=== PATIENT | male | born 1945 | race Caucasian/White ===

== ENCOUNTER 2020-04-09 18:08 | Inpatient (IN) | payer MEDICARE, OTHER ==
[~2020-04-09] VITALS: Ht 175.3 cm; Wt 83.6 kg
[2020-04-09] MEDS ORDERED: COZAAR50 MG (19:08)
[2020-04-09] MEDS ORDERED: DEXILANT60 MG PO (19:09)
[2020-04-09] MEDS ORDERED: GLUCOPHAGE500 MG PO (19:09)
[2020-04-09] MEDS ORDERED: LOVASTATIN40 MG PO (19:10)
[2020-04-09] MEDS ORDERED: CARDURA2 MG PO (19:10)
[2020-04-09] MEDS ORDERED: ZETIA10 MG (19:10)
[2020-04-09 19:16] VITALS: BP 180/85; BMI 27.2
[2020-04-09 19:23] LABS: BASOPHILS 0.1 % (0-2); EOSINOPHILS 0.1 % (0-7); HEMATOCRIT 40.3 % (42.0-54.0); HEMOGLOBIN 13.5 g/dL (13.5-17.5); IMMATURE GRANULOCYTES 0.2 % (0-5); LYMPHOCYTES 8.6 % (15-50); MCH 28.7 pg (26.0-34.0); MCHC 33.5 g/dL (31.0-37.0); MCV 85.6 fL (80.0-100.0); MEAN PLATELET VOLUME 8.9 fL (7.4-10.4); MONOCYTES 4.4 % (2-11); NEUTROPHILS 86.6 % (40-80); PLATELET COUNT 262 10x3/uL (130-400); RBC 4.71 10x6/uL (4.20-6.10); RDW 13.8 % (11.5-14.5); WBC 9.2 10x3/uL (4.8-10.8)
--- NOTE | 2020-04-09 19:25 | NUR ---
STARTED IV TO LEFT AC USING 20 GUAGE CATHETER IN ONE STICK. IV FLUIDS STARTED PER ORDER.
[2020-04-09 19:34] LABS: ALBUMIN 3.7 g/dL (3.4-5.0); ANION GAP 11.1 mmol/L (8-16); BILIRUBIN - TOTAL 0.68 mg/dL (0.2-1.3); CARBON DIOXIDE 25.9 mmol/L (21.0-32.0); CREATININE - SERUM 1.1 mg/dL (0.6-1.3); PROTEIN - SERUM 7.8 g/dL (6.4-8.2)
[2020-04-09 19:51] LABS: HELICOBACTER PYLORI IGG NEGATIVE (NEGATIVE)
--- NOTE | 2020-04-09 20:00 | NUR ---
ADMISSION ASSESSMENT AND HISTORY COMPLETED BY YIMI MCLEOD.
--- NOTE | 2020-04-09 20:00 | NUR ---
PT CONSENTED FOR UPCOMING PROCEDURE.
--- NOTE | 2020-04-09 20:30 | NUR ---
PT TAKEN TO SURGERY.
--- NOTE | 2020-04-09 21:35 | NUR ---
RECEIVED REPORT FROM YIMI MOELLER FROM [facility]ERY. PT WITH STABLE VITALS.
[2020-04-09 21:40] VITALS: BP 184/85
--- NOTE | 2020-04-09 21:40 | NUR ---
DR YING SPEAKING WITH DR RANDALL AT THIS TIME WITH UPDATE POST PROCEDURE.
[2020-04-09 21:45] VITALS: BP 115/78
--- NOTE | 2020-04-09 21:46 | NUR ---
PT BACK FROM SURGERY. ORDER TO DISCHARGE WHEN STABLE. CT SCAN CANCELLED.
--- NOTE | 2020-04-09 22:02 | NUR ---
GAVE ZOFRAN FOR NAUSEA.
--- NOTE | 2020-04-09 22:27 | NUR ---
DISCHARGE INSTRUCTIONS GIVEN TO PT AND SPOUSE. TOLD TO COME BACK TO ER IF CONDITION CHANGES OVERNIGHT.
--- NOTE | 2020-04-09 22:40 | NUR ---
ESCORTED PT OUT VIA WHEELCHAIR WITH SPOUSE AT SIDE TO ER EXIT, TO AWAITING CAR. TOLD PT TO CALL OR COME BACK TO ER IF PROBLEMS ARISE. PT STILL HAVING DRY HEAVES....HE INSISTS HE IS OK TO LEAVE AT THIS TIME.
--- NOTE | 2020-04-09 22:45 | NUR ---
DISCHARGE INSTRUCTIONS GIVEN TO PATIENT AND SPOUSE.
--- NOTE | 2020-04-10 07:37 | HP ---
PATIENT: LIZ BELLO MEDICAL RECORD: [id number] ACCOUNT: [id number] LOCATION:[id number] : 43 ADMISSION DATE: 04/09/20 PCP: GIULIA RANDALL MD HISTORY AND PHYSICAL EXAMINATION REASON FOR ADMISSION: Epigastric abdominal pain and inability to swallow. HISTORY OF PRESENT ILLNESS: The patient is a 73-year-old male with EGD in 2008 showing esophagitis, small hiatal hernia, and Wallace esophagus. He states he had been doing well from a GI standpoint until undergoing a left total hip replacement 2 months ago. Since that time, he states he has had trouble with some intermittent dark stools and some cramping and loose stools. Over the last few days, he has had more trouble with epigastric discomfort. The last few days, he has eaten shrimp that was spicy and developed increasing abdominal pain. He said he was gagging and throwing up liquids since that time. He has been having moderate nausea. No weight loss. He took Pepto-Bismol without improved and said his stools have been black intermittently. 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 PAST SURGICAL HISTORY: He has had tonsillectomy; bilateral total hip replacements; cataract surgery, both eyes. He had a left radial arm fracture as a child with bone graft. FAMILY HISTORY: He is . 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 His father at 67 with [place]. Mother at 67 from cancer. One son and one daughter. SOCIAL HISTORY: He has never smoked. He drinks minimal alcohol. ALLERGIES: None known. CURRENT MEDICATIONS: Restoril 30 mg at bedtime for sleep, ezetimibe 10 mg p.o. every night, doxazosin 2 mg at bedtime, losartan 50 mg daily, Colace 100 mg daily, Aleve 1 p.o. b.i.d., aspirin 325 mg a day, Dexilant 60 mg a day, lovastatin 40 mg at bedtime, sildenafil 100 mg tabs 1/2 to 1 as needed for ED, metformin 500 mg p.o. at bedtime. REVIEW OF SYSTEMS: CONSTITUTIONAL: No fever or fatigue. HEENT: No recent visual change, sinus congestion, or sore throat. RESPIRATORY: No SOB or cough. CARDIAC: No exertional chest pain, claudication, or edema. GASTROINTESTINAL: He has had nausea most pronounced over the last 2 days, difficulty swallowing and keeping liquids down. In the office, he did drink 1/4 cup of water. After 30 minutes, he vomited all the water up. His abdomen is tender in the epigastrium without masses felt. Bowel sounds are hyperactive. RECTAL: Shows heme-positive stool, is brown, enlarged prostate. EXTREMITIES: Knees show bilateral total knee replacement scars, asymptomatic. SKIN: No petechiae. NEUROLOGICAL: Oriented to person, place, and time. Cranial nerves intact grossly. Gait is normal. HISTORY AND PHYSICAL [id number] LIZ BELLO LABORATORY DATA: Hemoccult FOB is positive for occult blood. White count is 9900, 82 polys, H&H are 13 and 38.3 respectively. BMP is normal. Liver functions are pending. Flat and upright abdominal series shows no free air and normal bowel gas pattern with stool in the right colon. ASSESSMENT: 1. Severe epigastric abdominal pain, possible obstruction. 2. History of esophagogastritis and Wallace esophagitis. 2. Heme-positive stool with melena. 3. Recent NSAID use. 4. AODM, hypertension, hyperlipidemia, osteoarthritis, BPH. PLAN: The patient will be admitted to the hospital as soon as a room is ready. He is being held n.p.o., placed on Protonix drip. I have ordered CT scan of the abdomen and pelvis. I have spoken with Dr. Martinez who will see the patient in consultation. NTS:[id number] Voice Confirmation ID: [id number] DOCUMENT ID: [id number] GIULIA RANDALL MD at 0737 CC: [id number] DICTATION DATE: 04/09/201711 GRINDER OUTSIDE DIAMETER: 04/09/202012 DIS IN 04/09/20 [facility] [address] [id number]
[2020-04-10 17:34] VITALS: Ht 175.3 cm; Wt 83.6 kg
--- NOTE | 2020-04-12 17:32 | OP ---
PATIENT NAME: LIZ BELLO MEDICAL RECORD: [id number] :41 LOCATION:[id number] ADMISSION DATE:04/09/20 SURGEON: MARIE YING MD DATE OF OPERATION: 04/09/2020 PREOPERATIVE DIAGNOSIS: Food bolus impaction. Wallace esophagus. POSTOPERATIVE DIAGNOSES: Food bolus impaction with about 35 gastric polyps, two of which appeared to be adenomatous. There was no acute bleeding. Wallace esophagus. PROCEDURES: 1. Esophagogastroduodenoscopy without biopsies. 2. Esophageal dilation to 60-Pashto with zlzrqre-eqv-niiytied balloon. 3. Clearing food bolus impaction. SURGEON: Marie Ying MD SENIOR [employer] TAX MANAGER: None. BLOOD LOSS: Minimal. ANESTHESIA: General endotracheal. COMPLICATIONS: None. The risks, possible complications, and alternatives to the procedure were explained to the patient and his . They elected to proceed. I specifically discussed with them the risk of esophageal perforation. OPERATIVE COURSE: The patient was conveyed to the operating room urgently on 04/09/2020 and general anesthesia was induced by the anesthesia staff. A bite block was inserted. A gastroscope was inserted into the mouth. It was advanced easily into the hypopharynx. The esophagus was easily intubated. At the end of the esophagus, I inflated and then pushed some food material off the esophagus into the stomach. This was a food bolus that was very easily cleared. I went into the stomach. There was a good bit of fluid within the stomach. This was aspirated. I intubated the duodenum which was normal. I withdrew back into the stomach. My duty was to clear the food bolus and really not to ablate or remove the gastric polyps. He can follow up with Dr. Mays regarding these polyps. Two of them were fairly pedunculated and had tops that appeared to be adenomatous. There were a number of other more diminutive polyps within the stomach. I then withdrew into the cardia of the stomach. I advanced a jncuvqv-svg-pfodqktm balloon. I then sequentially dilated the entire length of the esophagus to 60-Pashto. I removed the gastroscope and the balloon. I then readvanced the gastroscope. There has been no evidence of false passage or perforation. The patient has a history of Wallace esophagus. I did not see any nodularity to material that could have represented Wallace esophagus. The gastroscope was then withdrawn under direct vision. I have contacted Dr. Villareal after the procedure. I have told him that from my standpoint the patient could follow up with Dr. Mays regarding the polyps. It appears from records that he has seen Dr. Mays in the past, but also Dr. Hassan, so I will see him on a p.r.n. basis. OPERATIVE REPORT [id number] LIZ BELLO NTS:[id number] Voice Confirmation ID: [id number] DOCUMENT ID: [id number] MARIE YING MD at 1732 CC: JHONATAN MAYS MD and GIULIA VILLAREAL [id number] DICTATION DATE: 04/10/201737 METAL CANS SUPERVISOR: 04/10/201911 DIS IN 04/09/20 [address] [address] [place] [address]
== END 2020-04-09 22:50 | disposition home or self-care (01) | DRG 394 ==
LOC: D.MS 18:08
PROVIDERS: Surgery; ADMIT Family Medicine; ATTEND Family Medicine
PROC: 0D758ZZ Dilation of Esophagus, Via Natural or Artificial Opening Endoscopic (ICD-10-PCS; principal; 2020-04-09 20:46)
DX: T18.128A Food in esophagus causing other injury, initial encounter (principal); K92.1 Melena; R10.13 Epigastric pain; E11.9 Type 2 diabetes mellitus without complications; I10 Essential (primary) hypertension; E78.5 Hyperlipidemia, unspecified; N40.0 Benign prostatic hyperplasia without lower urinary tract symptoms; M19.90 Unspecified osteoarthritis, unspecified site; K31.7 Polyp of stomach and duodenum; K22.70 Barrett's esophagus without dysplasia